=== PATIENT | male | born 1970 | race Caucasian/White ===

== ENCOUNTER → 2017-10-30 | Outpatient (CLI) | payer OTHER ==
[~2017-10-30] MED LIST: KEFLEX500 MG PO
== END ==
LOC: M.MRI 07:00
DX: M25.461 Effusion, right knee (principal); Z98.890 Other specified postprocedural states

== ENCOUNTER → 2020-01-15 | Outpatient (CLI) | payer OTHER | LOC: M.MRI 07:14 | PROVIDERS: ATTEND Family Medicine | DX: M19.012 Primary osteoarthritis, left shoulder (principal); G89.29 Other chronic pain ==